=== PATIENT | male | born 2000 | race Caucasian/White ===

== ENCOUNTER 2025-02-11 09:23 | Emergency (ER) | payer OTHER, SELFPAY ==
[2025-02-11 09:28] VITALS: BP 123/74
--- NOTE | 2025-02-11 09:55 | ED.GENMED ---
History of Present Illness
General
Chief Complaint: Musculo-Skeletal Complaint
Source: patient
Time Seen by Provider: 02/11/25 09:36
History of Present Illness
History of Present Illness:
24-year-old male presents to the emergency room complaining of pain in his left foot. Patient dropped a log onto his left foot last evening. He has pain in the top of the midfoot. No deformity. Patient is able to weight-bear. He is not taking
any analgesics.
Past History
Social History
Tobacco: Vaping (patient states he vapes 2-3x per day)
Alcohol: Occasional
Drug: None
Phy Exam
Physical Exam
Physical Exam:
General: Awake, Alert, Oriented X3. No acute distress.
Vitals: unremarkable
Head: Atraumatic
Eyes: Pupils equal, EOMI
Skin: Warm, dry, no rash
Extremities: pulses equal b/l, no edema. Tenderness palpation over the distal metatarsals of the left foot. Mild ecchymosis noted as well on the top of the foot. Range of motion intact. Sensation intact.
Course
Orders/Labs/Results
Orders:
Orders
02/11/25 09:30
Foot, Left 3 View [CR Foot - Left Min 3 Views] Urgent
Comment:
Reason For Exam: dropped wood log on left foot
Vital Signs
Initial and Last Documented VS:
Initial Vital Signs
Temp Pulse Resp BP Pulse Ox
98.4 F 78 16 123/74 98
02/11/25 09:28 02/11/25 09:28 02/11/25 09:28 02/11/25 09:28 02/11/25 09:28
Last Documented Vital Signs
Temp Pulse Resp BP Pulse Ox
98.4 F 78 16 123/74 98
02/11/25 09:28 02/11/25 09:28 02/11/25 09:28 02/11/25 09:28 02/11/25 09:28
MDM/Problems Addressed
Differential Diagnosis Includes:
Fracture, contusion, dislocation
MDM/Problems Addressed:
No fracture or dislocation noted on x-ray. Patient's discomfort likely from contusion. Symptomatic care. Weight-bear as tolerated.
*Pulse Oximetry
SaO2: 98
Oxygen Mode of Delivery: Room air
Patient hypoxic: no
*Critical Care Note
Total Time (30-74mins, 75-104mins- exclusive of procedures): Not Applicable
ED Attending Note
-
Portions of this chart may have been created with voice recognition software.� Occasional wrong word or��sound alike� substitutions may have occurred due to the inherent limitations of voice recognition software.
Discharge Plan
Departure
Patient Disposition: Home (Routine Discharge)
Date of Disposition: 02/11/25
Time of Disposition: :57
Patient with high blood pressure during this ER visit?: No
Condition: Good
Discharge Problem:
Contusion of foot, left
Instructions: Contusion (DC)
Activity Restrictions/Additional Instructions:
There is no broken bone noted on your x-ray. You can weight-bear as tolerated. Tylenol Motrin for pain.
Interventions
Interventions:
*Risk Screen - Suicide Last Done: 02/11/25 09:28
*General Assessment Last Done: 02/11/25 09:45
*Neglect/Abuse Screening Last Done: 02/11/25 09:28
*ED- Fall Risk Assessment Last Done: 02/11/25 09:45
*ED COVID-19 Vaccine History Last Done: 02/11/25 09:45
ED-Musculoskeletal Assessment Last Done: 02/11/25 09:46
Discharge Date and Time
Print Language: MALAWIAN
== END 2025-02-11 10:02 | disposition home or self-care (01) ==
LOC: EMR 09:23
PROVIDERS: EMERGENCY PHYSICIAN Emergency Medicine
DX: S90.32XA Contusion of left foot, initial encounter (principal); W20.8XXA Other cause of strike by thrown, projected or falling object, initial encounter; F17.290 Nicotine dependence, other tobacco product, uncomplicated
CPT/HCPCS: 99283; 73630